=== PATIENT | female | born 1945 | race Two or more races ===

== ENCOUNTER 2021-04-30 19:08 | Emergency (ER) | payer BC ==
[~2021-04-30] VITALS: Ht 154.9 cm; Wt 67.0 kg
[2021-04-30 19:41] VITALS: BP 157/48
[2021-04-30] MEDS ORDERED: ACETAMINOPHEN 325MG TABLET PO ONE (20:00)
[2021-04-30] MEDS ORDERED: TRAM50TA3 MT ×2 (21:51→21:54)
== END 2021-04-30 22:14 | disposition home or self-care (01) ==
LOC: ER 19:08
DX: S93.491A Sprain of other ligament of right ankle, initial encounter (principal); I10 Essential (primary) hypertension; X50.1XXA Overexertion from prolonged static or awkward postures, initial encounter; Y93.01 Activity, walking, marching and hiking; Y92.9 Unspecified place or not applicable; Z86.718 Personal history of other venous thrombosis and embolism
CPT/HCPCS: 73590; 73610; 73630; 99284